=== PATIENT | female | born 1945 | race Caucasian/White ===

== ENCOUNTER → 2016-09-04 | Outpatient (CLI) | payer MEDICARE, OTHER ==
[~2016-09-04] VITALS: Ht 160 cm; Wt 79.4 kg
[~2016-09-04] MED LIST: CALCCHW19 PO; LIAL1.2T PO; LIDOCAINE 2% INJ 100 MG/5 ML SDV (FOR ANES.) As Ordered ONE; NS 1,000 ML IV ONE; PRESCAP PO; PROPOFOL 200 MG/20 ML VIAL As Ordered ONE; SIMV40TA2 PO
--- NOTE | 2016-09-04 14:23 | ROOR ---
Patient Name: Dot Courtney Procedure Date: 09/04/2016 2:02 PM Date of : 1945 Age: 70 Room: [facility] Gender: Female Note Status: Finalized Procedure: Total Colonoscopy to Cecum + Bx. To r/o Dysplasia Indications: High risk colon cancer surveillance: Ulcerative left sided colitis, Last colonoscopy: 2011 Providers: Taz Ferguson MD Referring MD: Jackie Ruiz Requesting Provider: Medicines: Monitored Anesthesia Care Complications: No immediate complications. Procedure: Pre-Anesthesia Assessment: - The heart rate, respiratory rate, oxygen saturations, blood pressure, adequacy of pulmonary ventilation, and response to care were monitored throughout the procedure. The Colonoscope was introduced through the anus and advanced to the cecum, identified by appendiceal orifice and ileocecal valve. The colonoscopy was performed without difficulty. The patient tolerated the procedure well. The quality of the bowel preparation was good. Findings: The perianal and digital rectal examinations were normal. Multiple small and large-mouthed diverticula were found in the recto-sigmoid colon, sigmoid colon and descending colon. No other significant abnormalities were identified in a careful examination of the remainder of the colon. Multiple biopsies were obtained with cold forceps for ulcerative colitis surveillance randomly from anus to cecum. Background biopsies were taken for histology with a cold large-capacity forceps from the entire colon. These biopsy specimens were sent to Pathology. The exam was otherwise without abnormality on direct and retroflexion views. Impression: - Diverticulosis in the recto-sigmoid colon, in the sigmoid colon and in the descending colon. - The examination was otherwise normal on direct and retroflexion views. - Multiple biopsies were obtained from anus to cecum. - Background biopsies were taken from the entire colon. - The exam was otherwise normal to the cecum. Recommendation: - Patient has a contact number available for emergencies. The signs and symptoms of potential delayed complications were discussed with the patient. Return to normal activities tomorrow. Written discharge instructions were provided to the patient. - Resume previous diet. - Discharge patient to home. - Continue present medications. - Await pathology results. - Telephone GI clinic for pathology results in 1 week. - Check Portal Online for Path Results.([email or web address] - Repeat colonoscopy for surveillance based on pathology results. - Return to referring physician. - The findings and recommendations were discussed with the patient's family. Taz Ferguson MD Taz Ferguson MD 09/04/2016 2:22:50 PM This report has been signed electronically. Number of Addenda: 0 Note Initiated On: 09/04/2016 2:02 PM Estimated Blood Loss: Estimated blood loss: none.
[2016-09-04 14:46] VITALS: BP 141/81
== END | disposition home or self-care (01) ==
LOC: M OPP 12:23
PROVIDERS: ATTEND Internal Medicine Gastroenterology
DX: Z12.11 Encounter for screening for malignant neoplasm of colon (principal); K51.50 Left sided colitis without complications; K57.30 Diverticulosis of large intestine without perforation or abscess without bleeding; E78.5 Hyperlipidemia, unspecified; Z78.0 Asymptomatic menopausal state; Z88.0 Allergy status to penicillin; Z88.8 Allergy status to other drugs, medicaments and biological substances; Z79.899 Other long term (current) drug therapy; Z87.828 Personal history of other (healed) physical injury and trauma